=== PATIENT | female | born 1960 | race Caucasian/White ===

== ENCOUNTER 2019-01-24 06:04 | Day surgery (SDC) | payer OTHER ==
[2019-01-18 11:06] VITALS: BMI 34.0
[2019-01-24] MEDS ORDERED: DEXAMETHASONE SOD PHOSPHATE/PF 10 MG/ML SDV ONE (06:42)
[2019-01-24] MEDS ORDERED: BUPIVACAINE HCL/PF (5 MG/ML) 30 ML VIAL IJ ONE ×2 (06:42→10:02)
[2019-01-24] MEDS ORDERED: MIDAZOLAM HCL 2 MG/2 ML SINGLE DOSE VIAL ONE ×2 (06:43→10:07)
[2019-01-24] MEDS ORDERED: methylPREDNISolone ACET (DEPO) 40 MG/1 ML VIAL ONE (07:06)
[2019-01-24] MEDS ORDERED: THROMBIN (RECOMBINANT) 5,000 UNIT VIAL TP ONE (07:06)
[2019-01-24] MEDS ORDERED: GUM MASTIC/STORAX/MSAL/ALCOHOL 1 DRP DROPSBTL MC ONE ×2 (07:06→10:08)
[2019-01-24] MEDS ORDERED: LIDOCAINE 1%/EPI 1:100000 (20 ML MULTI DOSE VIAL) ONE (07:06)
[2019-01-24] MEDS: oxyCODONE HCL 10 MG SUSTAINED ACTING TABLET PO STA ×2 (07:10→07:20)
[2019-01-24] MEDS ORDERED: BUPIVACAINE HCL/PF 0.5% (5MG/ML) 10 ML VIAL ONE (07:36)
--- NOTE | 2019-01-24 08:16 | HP ---
History & Physical Update - History History: No Change - Physical Physical: No Change - Assessment Assessment: No Change - Plan Plan: No Change (Initial H&P is located in her paper chart and will be scanned into her [facility]. Complete and accurate. No new complaints or medications.)
[2019-01-24] MEDS ORDERED: ONDANSETRON 4 MG/2 ML VIAL ONE (08:48)
[2019-01-24] MEDS ORDERED: ceFAZolin SODIUM 1 GM VIAL ONE (08:48)
[2019-01-24] MEDS ORDERED: DEXAMETHASONE SOD PHOSPHATE 4 MG/1 ML VIAL ONE (08:48)
[2019-01-24] MEDS ORDERED: LIDOCAINE 1%/EPI 1:100000 (50 ML MULTI DOSE VIAL) INF ONE (09:00)
[2019-01-24] MEDS ORDERED: GELATIN SPONGE,ABSORBABLE 1 GM PACKET TP ONE (09:15)
[2019-01-24] MEDS ORDERED: THROMBIN (BOVINE) 5,000 UNIT VIAL TP ONE (09:15)
[2019-01-24] MEDS ORDERED: methylPREDNISolone ACET (DEPO) 40 MG/1 ML VIAL IM ONE (09:52)
[2019-01-24] MEDS ORDERED: BUPIVACAINE LIPOSOME/PF (EXPAREL) 266 MG/20 ML VIAL ONE (10:02)
--- NOTE | 2019-01-24 10:20 | OP ---
Operative Note - Note: Operative Date: 01/24/19 Pre-Operative Diagnosis: L4/5, L5/S1 Stenosis with lower extremity radiculopathy Operation: L4/5, L5/S1 bilateral laminectomy Post-Operative Diagnosis: Same as Pre-op Surgeon: Kevin Bolanos Manager Purchasing: Ari Huertas Anesthesiologist/GARBAGE DEPOT WORKER: Destiny [address] Anesthesia: Spinal Specimens Removed: None. Estimated Blood Loss (mls): 20 Fluid Volume Replaced (mls): 500 Operative Report Dictated: Yes
--- NOTE | 2019-01-24 10:21 | SURG ---
Surgery Design Cell Engineer Note Design Cell Engineer: Ari Huertas PA-C Date of Service: 01/24/19 Diagnosis: L4/5, L5/S1 Stenosis with lower extremity radiculopathy Procedure: L4/5, L5/S1 bilateral laminectomy I was present for the entirety of the operative procedure. For further detail, please refer to operative report. Visit type - Case Type Case Type: Scheduled - New patient This patient is new to me today: Yes Date on this admission: 01/24/19
[2019-01-24] MEDS ORDERED: oxyCODONE HCL 5 MG TABLET ONE (10:54)
[2019-01-24 12:54] VITALS: TEMP 98.4
[2019-01-24 12:56] VITALS: BP 109/55; PULSE 94
[2019-01-24] MEDS ORDERED: ONDANSETRON 4 MG/2 ML VIAL IVPUSH PRN (13:15)
[2019-01-24] MEDS ORDERED: oxyCODONE HCL 5 MG TABLET PO PRN (13:15)
[2019-01-24] MEDS ORDERED: LACTATED RINGERS SOLUTION 1,000 ML IV SCH (13:15)
--- NOTE | 2019-01-25 09:09 | OP ---
DATE OF OPERATION: 01/24/2019 PREOPERATIVE DIAGNOSIS: Spinal stenosis, L4-5, L5-S1. POSTOPERATIVE DIAGNOSIS: Spinal stenosis, L4-5, L5-S1. PROCEDURE PERFORMED: Laminectomy, L4-5, L5-S1. SURGEON: Kevin Bolanos MD BIG 6 DEALER: RADHA Marr ESTIMATED BLOOD LOSS: 50 mL. INTRAVENOUS FLUIDS: Per Anesthesia. ANESTHESIA: Spinal/TLIP. COMPLICATIONS: None. DISPOSITION: Patient brought to PACU in stable condition. INDICATION FOR SURGERY: Patient is a 58-year-old female who has been suffering from pain from her back down her legs. X-rays and MRI were completed which showed that she had spinal stenosis from L4 to S1. She had gone through an exhaustive course of treatment for this which included medications, physical therapy as well as injections. Unfortunately her pain continued to persist despite all this. At this point risks, benefits and alternatives were discussed and the patient consented to surgery. OPERATIVE NOTE: Patient brought to the operating room by Anesthesia staff. After appropriate patient identification was performed spinal anesthesia was given. A TLIP block was also given. Patient was able to position herself prone on to the OR table with all areas of bony prominences well padded. At this time 2 needles were placed into her back to stephany off the L4 to S1 step level. X-ray was taken to confirm this was correct. Everson were removed and 10 mL of lidocaine with epinephrine was injected into her back. At this time her back was prepped and draped in a sterile manner. At this point timeout was completed. Incision was made from the top of L4 down to the bottom of S1. Dissection was carried down to the fascia. Fascia was opened at this time and appropriate retractor was then placed in. A spinal needle was placed on to the L4 lamina to stephany off the L4-5 level. X-ray was taken to confirm site. Needle was removed and the interspinous ligament at L4-5 and L5-S1 was removed. The spinous process at L5 was removed. The lamina at L5 was removed. The flavum was removed. A complete decompression was performed such that by the end of the procedure the L5 and S1 nerve roots appeared to be well decompressed. All bleeding was well controlled at this time. Steroids were placed over the nerve root. FloSeal was placed over that. The fascia was closed with a No. 1 Vicryl suture, subcutaneous tissue closed with 2-0 Vicryl suture, skin was closed with 3-0 Monocryl suture. Dermabond was applied. Steri-Strips were applied. Sterile dressing applied. Patient placed supine on the OR bed, brought to the PACU in stable condition. KEVIN BOLANOS M.D. [place]/[id number]
== END 2019-01-24 12:55 | disposition home or self-care (01) ==
LOC: FASU 06:04
PROVIDERS: ATTEND Orthopaedic Surgery Orthopaedic Surgery of the Spine
PROC: 01NB0ZZ Release Lumbar Nerve, Open Approach (ICD-10-PCS; principal; 2019-01-24 09:08)
DX: M48.061 Spinal stenosis, lumbar region without neurogenic claudication (principal); M48.07 Spinal stenosis, lumbosacral region
CPT/HCPCS: 72100-TC-FY; 82962; 94760